=== PATIENT | male | born 1945 | race Caucasian/White ===

== ENCOUNTER 2021-09-08 23:37 | Emergency (ER) | payer MEDICARE, OTHER ==
--- NOTE | 2021-09-09 00:27 | ED ---
CPR HPI - General Stated Complaint: cardiac Time Seen by Provider: 09/08/21 23:55 - History of Present Illness Initial Comments: Christiano is a 75-year-old male with extensive cardiac history is brought to the ER today via EMS with CPR in progress. History is provided by the . reports that the patient had some good night and was walking into their camper to go to bed, they heard him fall in the bathroom. Did break the door down and found him curled up on the floor, he was moaning. EMS was called. EMS reports that when they arrived he was no longer moaning had a pulse of 20 but upon moving him into the ambulance he lost pulses and CPR was initiated. Patient received 2 rounds of epinephrine and continuous CPR in route to the hospital. Review of Systems ROS Statement: Those systems with pertinent positive or pertinent negative responses have been documented in the HPI. ROS Other: All systems not noted in ROS Statement are negative. General Exam - General Exam Comments Initial Comments: Physical Exam GENERAL: Unresponsive, pale, CPR in progress HENT: Normocephalic, Atraumatic. EYES: Left pupil with post surgical changes PULMONARY: No spontaneous respirations CARDIOVASCULAR: CPR in progress ABDOMEN: No distention SKIN: No injuries : Deferred NEUROLOGIC: Unresponsive No gag reflex with intubation No corneal reflex MUSCULOSKELETAL: No obvious injury Procedures - Intubation Laryngoscope: fiber optic video scope Size: 3 ET Tube Size: 7 ET Tube Uncuffed: No Tube Placement Confirmation: visualized tube passing through cords Patient Tolerated Procedure: no complications Medical Decision Making - Medical Decision Making There was a report the patient had collapsed to the ground and may have struck his head however there was no head trauma I discussed this with Dr. Harley who advised that there is no obvious head trauma this does not meet criteria for an activated trauma Resuscitation was continued per ACLS protocol Patient was intubated without difficulty Patient received 4 rounds of epinephrine, 2 different relations but remained pulseless and unresponsive Patient's condition and prognosis was discussed the at bedside who states that he never wanted to be on a ventilator and that they would like to discontinue resuscitation efforts at this time Patient was pronounced at 2350 Patient care was discussed with Payroll Accounting Clerk Nani - patient is released Case # [id number] Disposition Clinical Impression: Cardiac arrest Disposition: Referrals: Nonstaff,Physician [Primary Care Provider] - 1-2 days Time of Disposition: 23:50 Preliminary Cause of : ventricular fibrilation
== END 2021-09-09 04:21 | disposition expired ==
LOC: EC 23:37
DX: I46.9 Cardiac arrest, cause unspecified (principal)
CPT/HCPCS: 94002